=== PATIENT | male | born 1970 | race Asian ===

== ENCOUNTER 2016-10-11 10:47 | Inpatient (IN) | payer OTHER ==
[~2016-10-11] VITALS: Ht 167.6 cm; Wt 94.5 kg
[2016-10-11 11:30] LABS: BASOPHIL % 0.8 % (0-2); PLATELET COUNT 157 x10^3mcL (130-400); RED CELL DISTRIBUTION WIDTH 13.3 % (11.5-14.5)
[2016-10-11 11:36] LABS: CALCIUM 8.8 mg/dL (8.5-10.1); CARBON DIOXIDE 24.1 mmol/L (21-32); CHLORIDE SERUM 104 mmol/L (98-107); CREATININE SERUM 0.9 mg/dL (0.7-1.3); GFR1 > 60 mL/min; GLUCOSE SERUM 218 mg/dL (74-106); POTASSIUM SERUM 3.7 mmol/L (3.5-5.1); SODIUM SERUM 140 mmol/L (136-145)
[2016-10-11 11:40] LABS: ALBUMIN 4.2 g/dL (3.4-5.0); ALKALINE PHOSPHATASE 75 U/L (46-116); ALT/SGPT 107 U/L (16-63); AST/SGOT 81 U/L (15-37); BILIRUBIN TOTAL 0.8 mg/dL (0.20-1.00); LIPASE 104 IU/L (73-393)
[2016-10-11 11:42] LABS: AMYLASE 16 U/L (25-115); TOTAL PROTEIN, SERUM 8.3 g/dL (6.4-8.2)
[2016-10-11 17:16] VITALS: BP 169/113
[2016-10-11 17:22] VITALS: Ht 167.6 cm; Wt 94.5 kg
[2016-10-11 17:46] LABS: T3 TOTAL 1.39 ng/mL
[2016-10-11 17:47] LABS: MAGNESIUM 1.9 mg/dL (1.8-2.4); PHOSPHOROUS 2.4 mg/dL (2.5-4.9); T4(THYROXINE) 11.1 ug/dL (4.7-13.3)
[2016-10-11 17:51] LABS: CHOLESTEROL/HDL RATIO 3.5
[2016-10-11 18:04] LABS: FREE T4 1.27 ng/dL (0.76-1.46)
[2016-10-11 18:31] LABS: microscopic required? YES; urine erythrocyte TRACE (NEGATIVE)
[2016-10-11 18:42] LABS: AMPHETAMINE QUAL UR NONE DETECTED (NEG <=1000)
[2016-10-11 22:04] VITALS: BP 179/114
[2016-10-12 00:55] VITALS: BP 141/91
[2016-10-12 06:20] VITALS: BP 127/89
[2016-10-12 06:40] LABS: PLATELET COUNT 135 x10^3mcL (130-400); RED CELL DISTRIBUTION WIDTH 13.9 % (11.5-14.5)
[2016-10-12 06:44] LABS: CALCIUM 8.3 mg/dL (8.5-10.1); CARBON DIOXIDE 30.8 mmol/L (21-32); CHLORIDE SERUM 104 mmol/L (98-107); GFR1 > 60 mL/min; GLUCOSE SERUM 154 mg/dL (74-106); POTASSIUM SERUM 3.6 mmol/L (3.5-5.1); SODIUM SERUM 141 mmol/L (136-145)
[2016-10-12 07:03] LABS: BASOPHIL % 0 % (0-2)
[2016-10-12 09:25] VITALS: BP 114/72
[2016-10-12 13:25] VITALS: BP 121/89
[2016-10-12 17:43] VITALS: BP 132/92
[2016-10-12 21:35] VITALS: BP 153/105
[2016-10-13 05:44] VITALS: BP 127/78
[2016-10-13 06:18] LABS: BASOPHIL % 0.2 % (0-2); PLATELET COUNT 135 x10^3mcL (130-400); RED CELL DISTRIBUTION WIDTH 13.4 % (11.5-14.5)
[2016-10-13 06:22] LABS: CALCIUM 8.4 mg/dL (8.5-10.1); CARBON DIOXIDE 29.2 mmol/L (21-32); CHLORIDE SERUM 106 mmol/L (98-107); GFR1 > 60 mL/min; GLUCOSE SERUM 128 mg/dL (74-106); MAGNESIUM 1.9 mg/dL (1.8-2.4); PHOSPHOROUS 2.9 mg/dL (2.5-4.9); POTASSIUM SERUM 3.5 mmol/L (3.5-5.1); SODIUM SERUM 141 mmol/L (136-145)
[2016-10-13 09:09] VITALS: BP 145/103
[2016-10-13] MEDS ORDERED: ZES10 PO (10:15)
[2016-10-13] MEDS ORDERED: LIPI10 PO (10:15)
[2016-10-13] MEDS ORDERED: PRI20 PO (10:16)
[2016-10-13] MEDS ORDERED: GLU500 PO (10:16)
== END 2016-10-13 14:33 | disposition home or self-care (01) | DRG 392 ==
LOC: ED 10:47 → MU 15:40 → DU 15:40 → MU 10-12 16:59
PROVIDERS: Emergency Medicine Emergency Medical Services; Family Medicine; ADMIT Family Medicine
DX: K57.30 Diverticulosis of large intestine without perforation or abscess without bleeding (principal); D68.69 Other thrombophilia; E11.51 Type 2 diabetes mellitus with diabetic peripheral angiopathy without gangrene; E11.65 Type 2 diabetes mellitus with hyperglycemia; I10 Essential (primary) hypertension; R74.0 Nonspecific elevation of levels of transaminase and lactic acid dehydrogenase [LDH]; E83.39 Other disorders of phosphorus metabolism; E78.5 Hyperlipidemia, unspecified; Z68.33 Body mass index [BMI] 33.0-33.9, adult
CPT/HCPCS: 83880; 84439; 87046; 87046-59; J0360; J0696; J2270; J2405; J3490; J7030; Q0092; Q9967